=== PATIENT | male | born 1965 | race African-American/Black ===

== ENCOUNTER 2023-08-16 22:01 | Emergency (ER) | payer MEDICAID, MEDICARE, OTHER ==
[~2023-08-16] VITALS: Ht 190.5 cm; Wt 100.0 kg
[2023-08-16 22:03] VITALS: O2SAT 100
[2023-08-16 22:51] VITALS: BP 112/67; PULSE 85; RESP 14; TEMP 98.7
== END 2023-08-17 00:40 | disposition home or self-care (01) ==
LOC: ER 22:01
DX: T82.838A Hemorrhage due to vascular prosthetic devices, implants and grafts, initial encounter (principal); E11.9 Type 2 diabetes mellitus without complications; I10 Essential (primary) hypertension; Z99.2 Dependence on renal dialysis; Z88.8 Allergy status to other drugs, medicaments and biological substances; Y92.89 Other specified places as the place of occurrence of the external cause
CPT/HCPCS: 99283